=== PATIENT | female | born 1935 | race Caucasian/White ===

== ENCOUNTER 2017-09-12 11:21 | Inpatient (IN) | payer OTHER, BC ==
[~2017-09-12] VITALS: Ht 162.6 cm; Wt 66.0 kg
[~2017-09-12 11:21] MED LIST: ASPERCREME TOP; KLO1 PO; TYL500 PO; UNISOM PO; VIC PO
[2017-09-12 14:34] LABS: BASOPHIL % 0.3 % (0-2); PLATELET COUNT 181 x10^3mcL (130-400); RED CELL DISTRIBUTION WIDTH 13.8 % (11.5-14.5)
[2017-09-12 14:46] LABS: CALCIUM 8.4 mg/dL (8.5-10.1); CARBON DIOXIDE 25.8 mmol/L (21-32); CHLORIDE SERUM 103 mmol/L (98-107); CREATININE SERUM 1.2 mg/dL (0.6-1.0); GLUCOSE SERUM 105 mg/dL (74-106); POTASSIUM SERUM 3.9 mmol/L (3.5-5.1); SODIUM SERUM 138 mmol/L (136-145)
[2017-09-12 14:52] LABS: ALKALINE PHOSPHATASE 55 U/L (46-116); ALT/SGPT 9 U/L (14-59); AST/SGOT 22 U/L (15-37); BILIRUBIN TOTAL 0.47 mg/dL (0.20-1.00); LIPASE 62 IU/L (73-393)
[2017-09-12 15:12] LABS: ALBUMIN 2.9 g/dL (3.4-5.0); TOTAL PROTEIN, SERUM 6.1 g/dL (6.4-8.2)
[2017-09-12 16:13] LABS: PHOSPHOROUS 3.5 mg/dL (2.5-4.9)
[2017-09-12 16:24] LABS: T3 TOTAL 0.65 ng/mL
[2017-09-12 17:00] LABS: FREE T4 1.21 ng/dL (0.76-1.46); FREE THYROXINE INDEX 3.3 ug/dL (1.4-4.5); T4(THYROXINE) 8.7 ug/dL (4.7-13.3)
[2017-09-12 17:06] VITALS: BP 16/92
[2017-09-12 17:08] VITALS: Ht 162.6 cm; Wt 66.0 kg
[2017-09-12 18:00] VITALS: BP 111/45
[2017-09-12 21:04] VITALS: BP 85/21
[2017-09-12 22:08] VITALS: BP 124/50
[2017-09-13 05:52] VITALS: BP 107/43
[2017-09-13 06:53] LABS: CALCIUM 8.3 mg/dL (8.5-10.1); CARBON DIOXIDE 25.9 mmol/L (21-32); CHLORIDE SERUM 110 mmol/L (98-107); CREATININE SERUM 0.9 mg/dL (0.6-1.0); GLUCOSE SERUM 93 mg/dL (74-106); PHOSPHOROUS 2.6 mg/dL (2.5-4.9); POTASSIUM SERUM 3.5 mmol/L (3.5-5.1); SODIUM SERUM 139 mmol/L (136-145)
[2017-09-13 06:58] LABS: BASOPHIL % 0.2 % (0-2); PLATELET COUNT 205 x10^3mcL (130-400); RED CELL DISTRIBUTION WIDTH 13.9 % (11.5-14.5)
[2017-09-13 09:00] VITALS: BP 103/42
[2017-09-13 12:10] VITALS: BP 111/45
[2017-09-13 13:18] LABS: microscopic required? YES; urine erythrocyte TRACE (NEGATIVE)
[2017-09-13 17:14] VITALS: BP 123/48
[2017-09-13 21:54] VITALS: BP 129/36
[2017-09-14 06:01] VITALS: BP 126/44
[2017-09-14 06:36] LABS: BASOPHIL % 0.6 % (0-2); PLATELET COUNT 213 x10^3mcL (130-400); RED CELL DISTRIBUTION WIDTH 13.9 % (11.5-14.5)
[2017-09-14 07:06] LABS: CALCIUM 8.1 mg/dL (8.5-10.1); CARBON DIOXIDE 23.7 mmol/L (21-32); CHLORIDE SERUM 114 mmol/L (98-107); CREATININE SERUM 0.8 mg/dL (0.6-1.0); GLUCOSE SERUM 82 mg/dL (74-106); POTASSIUM SERUM 3.4 mmol/L (3.5-5.1); SODIUM SERUM 144 mmol/L (136-145)
[2017-09-14 08:45] VITALS: BP 122/51
[2017-09-14 14:13] VITALS: BP 139/67
[2017-09-14] MEDS ORDERED: LAC PO (14:14)
[2017-09-14] MEDS ORDERED: CLEOCIN HCL300 MG PO (14:14)
[2017-09-14] MEDS ORDERED: LEVAQUIN750 MG PO (14:14)
[2017-09-14 14:58] VITALS: BP 139/67
== END 2017-09-14 17:12 | disposition home or self-care (01) | DRG 391 ==
LOC: ED 11:21 → DU 15:37 → MU 09-14 06:27
PROVIDERS: Emergency Medicine; Family Medicine; ADMIT Family Medicine
DX: A08.4 Viral intestinal infection, unspecified (principal); N17.0 Acute kidney failure with tubular necrosis; E44.0 Moderate protein-calorie malnutrition; N39.0 Urinary tract infection, site not specified; E86.0 Dehydration; E83.42 Hypomagnesemia; E87.5 Hyperkalemia; I10 Essential (primary) hypertension; K76.89 Other specified diseases of liver; N28.1 Cyst of kidney, acquired; M06.9 Rheumatoid arthritis, unspecified; F41.9 Anxiety disorder, unspecified; Z96.652 Presence of left artificial knee joint; Z68.25 Body mass index [BMI] 25.0-25.9, adult
CPT/HCPCS: 83880; 84439; J2270; J2405; J2543; J3475; J7030; Q0092; Q9967

== ENCOUNTER 2018-09-05 16:51 | Inpatient (IN) | payer BC ==
[~2018-09-05] VITALS: Ht 162.6 cm; Wt 65.9 kg
[~2018-09-05 16:51] MED LIST changes: +CLEOCIN HCL300 MG PO; +LAC PO; +LEVAQUIN750 MG PO
[2018-09-05 16:52] VITALS: Ht 162.6 cm; Wt 65.9 kg
[2018-09-05 17:18] LABS: BASOPHIL % 0.4 % (0-2); PLATELET COUNT 205 x10^3mcL (130-400); RED CELL DISTRIBUTION WIDTH 13.9 % (11.5-14.5)
[2018-09-05 17:24] LABS: CALCIUM 8.8 mg/dL (8.5-10.1); CARBON DIOXIDE 27.1 mmol/L (21-32); CHLORIDE SERUM 104 mmol/L (98-107); CREATININE SERUM 1.6 mg/dL (0.6-1.0); GLUCOSE SERUM 138 mg/dL (74-106); POTASSIUM SERUM 3.8 mmol/L (3.5-5.1); SODIUM SERUM 141 mmol/L (136-145)
[2018-09-05] MEDS ORDERED: NORCO1 TA2 PO (17:40)
[2018-09-05] MEDS ORDERED: KLONOPIN1 MG PO (17:41)
[2018-09-05] MEDS ORDERED: PREDNISONE20 MG PO (17:41)
[2018-09-05 21:08] VITALS: BP 127/48
[2018-09-05 21:26] LABS: MAGNESIUM 2.4 mg/dL (1.8-2.4); PHOSPHOROUS 3.9 mg/dL (2.5-4.9)
[2018-09-05 21:48] LABS: CHOLESTEROL 431 mg/dL (<200); HDL CHOLESTEROL 72 mg/dL (40-60); TRIGLYCERIDES 469 mg/dL (<150)
[2018-09-06 02:32] LABS: UA SPECIFIC GRAVITY 1.015 (1.005-1.035); microscopic required? YES; urine erythrocyte NEGATIVE (NEGATIVE)
[2018-09-06 06:20] VITALS: BP 135/59
[2018-09-06 06:54] LABS: PLATELET COUNT 184 x10^3mcL (130-400); RED CELL DISTRIBUTION WIDTH 14.3 % (11.5-14.5)
[2018-09-06 06:56] LABS: BASOPHIL % 0 % (0-2)
[2018-09-06 07:25] LABS: CALCIUM 8.3 mg/dL (8.5-10.1); CARBON DIOXIDE 25.7 mmol/L (21-32); CHLORIDE SERUM 108 mmol/L (98-107); GLUCOSE SERUM 84 mg/dL (74-106); MAGNESIUM 2.3 mg/dL (1.8-2.4); PHOSPHOROUS 2.9 mg/dL (2.5-4.9); POTASSIUM SERUM 3.7 mmol/L (3.5-5.1); SODIUM SERUM 142 mmol/L (136-145)
[2018-09-06 07:46] VITALS: BP 139/60
[2018-09-06 12:01] VITALS: BP 142/67
[2018-09-06 17:15] VITALS: BP 132/50
[2018-09-06 20:09] VITALS: BP 97/61
[2018-09-07 05:32] VITALS: BP 138/63
[2018-09-07 06:31] LABS: BASOPHIL % 0.4 % (0-2); PLATELET COUNT 168 x10^3mcL (130-400); RED CELL DISTRIBUTION WIDTH 14.1 % (11.5-14.5)
[2018-09-07 06:47] LABS: CALCIUM 8.2 mg/dL (8.5-10.1); CARBON DIOXIDE 25.6 mmol/L (21-32); CHLORIDE SERUM 112 mmol/L (98-107); CREATININE SERUM 0.9 mg/dL (0.6-1.0); GLUCOSE SERUM 77 mg/dL (74-106); PHOSPHOROUS 2.9 mg/dL (2.5-4.9); SODIUM SERUM 144 mmol/L (136-145)
[2018-09-07 09:18] VITALS: BP 166/64
[2018-09-07 12:57] VITALS: BP 166/69
[2018-09-07 13:37] VITALS: BP 166/69
== END 2018-09-07 17:55 | disposition home or self-care (01) | DRG 555 ==
LOC: ED 16:51 → DU 20:15
PROVIDERS: Emergency Medicine; General Practice
DX: M79.622 Pain in left upper arm (principal); N17.0 Acute kidney failure with tubular necrosis; R53.1 Weakness; M06.9 Rheumatoid arthritis, unspecified; M31.6 Other giant cell arteritis; E78.5 Hyperlipidemia, unspecified; Z68.26 Body mass index [BMI] 26.0-26.9, adult; Z96.652 Presence of left artificial knee joint; Z86.73 Personal history of transient ischemic attack (TIA), and cerebral infarction without residual deficits; Z79.52 Long term (current) use of systemic steroids; Z79.891 Long term (current) use of opiate analgesic
CPT/HCPCS: 36000; J2405; J7030; J7512; Q0092; Q9967